=== PATIENT | male | born 1945 | race Caucasian/White ===

== ENCOUNTER 2017-02-22 17:03 | Inpatient (IN) | payer MEDICARE ==
[~2017-02-22] VITALS: Ht 198.1 cm; Wt 92.1 kg
--- NOTE | 2017-02-22 17:34 | ER Report ---
History and Physical Time Seen By MD: 17:33 HPI/ROS CHIEF COMPLAINT: Abdominal pain, dysuria HISTORY OF PRESENT ILLNESS: 72-year-old male patient presents to emergency room with complaint of abdominal pain, dysuria. Patient states that this been going on for approximately 3 weeks. He states that he has not taken any medications for this. He has not seen a primary care provider in approximately 10 years. He states that he's not had any nausea or vomiting, however he has had diarrhea. He states the diarrhea is been fairly significant. He feels like she is unable to get enough fluid. He did go and see Amira Markham today who referred him to the emergency room for further evaluation and possible admission. He did have lab work done, white count of 12.7, left shift, moderate leukocyte esterase with 2000 white cells per high-power field on his urinalysis. REVIEW OF SYSTEMS: Respiratory: No cough, no dyspnea. Cardiovascular: No chest pain, no palpitations. Gastrointestinal: As noted above Musculoskeletal: No back pain. Allergies: Coded Allergies: No Known Drug Allergies (Unverified , 02/22/17) Home Meds No Active Prescriptions or Reported Meds Past Medical/Surgical History Patient has a past medical history of Type 2 diabetes Reviewed Nurses Notes: Yes Constitutional Vital Sign - Last 24 Hours 02/22/17 02/22/17 02/22/17 02/22/17 17:33 17:49 17:50 18:00 Temp 100.2 Pulse ??? 92 Resp 18 B/P (MAP) 159/88 (111) 159/88 155/89 (111) Pulse Ox 92 O2 Delivery Room Air 02/22/17 02/22/17 02/22/17 02/22/17 18:03 18:33 18:38 19:04 Pulse 97 93 92 Resp 25 15 B/P (MAP) 155/81 (105) 149/85 (106) Pulse Ox 92 92 92 02/22/17 02/22/17 02/22/17 19:08 19:32 19:38 Pulse 86 86 Resp 9 11 B/P (MAP) 163/79 (107) Pulse Ox 91 92 Intake and Output 02/22/17 02/22/17 02/23/17 15:00 23:00 07:00 Intake Total 1000 ml Balance 1000 ml Physical Exam General Appearance: The patient is alert, has no immediate need for airway protection and no current signs of toxicity. Respiratory: Chest is non tender, lungs are clear to auscultation. Cardiac: regular rate and rhythm Gastrointestinal: Abdomen is soft and non tender, no masses, bowel sounds normal. Musculoskeletal: Neck: Neck is supple and non tender. Extremities have full range of motion and are non tender. Skin: No rashes or lesions. DIFFERENTIAL DIAGNOSIS: After history and physical exam differential diagnosis was considered for UTI, urosepsis, weakness, kidney stones. Medical Decision Making Data Points Result Diagram: 02/22/17180702/22/171807 Laboratory Hematology Test 02/22/17 17:56 02/22/17 18:08 02/22/17 18:25 02/22/17 18:41 Urine Color Yellow Urine Clarity Turbid Urine pH 5.0 pH (4.8-9.5) Urine Specific [place] 1.016 Urine Protein 100 mg/dL (NEGATIVE) Urine Glucose (UA) 500 mg/dL (NEGATIVE) Urine Ketones Trace mg/dL (NEGATIVE) Urine Blood Moderate (NEGATIVE) Urine Nitrite Negative (NEGATIVE) Urine Bilirubin Negative (NEGATIVE) Urine Urobilinogen Negative mg/dL (0.2-1.9) Urine Leukocyte Esterase Moderate (NEGATIVE) Urine RBC None /HPF (0-2/HPF) Urine WBC 1738 /HPF (0-5/HPF) Urine WBC Clumps Many /HPF Urine Squamous Epithelial Cells None /LPF (</=FEW) Urine Transitional Epithelial Cells Many /LPF (NONE-FEW) Urine Bacteria Negative /HPF (NONE-FEW) Urine Mucus None /HPF (NONE-FEW) Urine Yeast (Budding) Many /HPF Red Blood Count 5.05 M/uL (4.00-5.60) Mean Corpuscular Volume 89.4 fL (80.0-96.0) Mean Corpuscular Hemoglobin 29.7 pg (26.0-33.0) Mean Corpuscular Hemoglobin Concent 33.2 g/dL (32.0-36.0) Red Cell Distribution Width 13.1 % (11.5-14.5) Mean Platelet Volume 7.9 fL (7.2-11.1) Neutrophils (%) (Auto) 88.0 % (39.4-72.5) Lymphocytes (%) (Auto) 5.0 % (17.6-49.6) Monocytes (%) (Auto) 6.3 % (4.1-12.4) Eosinophils (%) (Auto) 0.1 % (0.4-6.7) Basophils (%) (Auto) 0.6 % (0.3-1.4) Nucleated RBC Relative Count (auto) 0.0 /100WBC Neutrophils # (Auto) 9.9 K/uL (2.0-7.4) Lymphocytes # (Auto) 0.6 K/uL (1.3-3.6) Monocytes # (Auto) 0.7 K/uL (0.3-1.0) Eosinophils # (Auto) 0.0 K/uL (0.0-0.5) Basophils # (Auto) 0.1 K/uL (0.0-0.1) Nucleated RBC Absolute Count (auto) 0.00 K/uL Peripheral Blood Smear No Y/N Sodium Level 128 mmol/L (137-145) Potassium Level 4.9 mmol/L (3.5-5.0) Chloride Level 96 mmol/L (98-107) Carbon Dioxide Level 19 mmol/L (22-30) Blood Urea Nitrogen 37 mg/dl (9-21) Creatinine 1.70 mg/dl (0.66-1.25) Glomerular Filtration Rate Calc 39.7 Random Glucose 454 mg/dl (75-110) Osmolality 305 mOSM/K (275-295) Lactate 1.8 mmol/L (0.7-2.1) Calcium Level 9.9 mg/dl (8.4-10.2) Total Bilirubin 0.7 mg/dl (0.2-1.3) Aspartate Amino Transf (AST/SGOT) 35 U/L (0-35) Alanine Aminotransferase (ALT/SGPT) 69 U/L (0-56) Alkaline Phosphatase 248 U/L (0-126) Total Protein 7.9 gm/dl (6.3-8.2) Albumin 3.7 g/dl (3.5-5.0) Acetone, Qualitative Negative Blood Gas Puncture Site Right radial Blood Gas Patient Temperature 100.2 DEGREES Arterial Blood pH 7.43 (7.35-7.45) Arterial Blood Partial Pressure CO2 < 25 mmHg (32-37) Arterial Blood Partial Pressure O2 62 mmHg (60-80) Arterial Blood HCO3 16 mmol/L (20-26) Arterial Blood Oxygen Saturation 92 % (92-100) Arterial Blood Base Excess -9.0 mmol/L Tru Test Acceptable Oxygen Liters/Minute 0 Whole Blood Glucose 424 mg/DL (75-110) Chemistry Test 02/22/17 17:56 02/22/17 18:08 02/22/17 18:25 02/22/17 18:41 Urine Color Yellow Urine Clarity Turbid Urine pH 5.0 pH (4.8-9.5) Urine Specific [place] 1.016 Urine Protein 100 mg/dL (NEGATIVE) Urine Glucose (UA) 500 mg/dL (NEGATIVE) Urine Ketones Trace mg/dL (NEGATIVE) Urine Blood Moderate (NEGATIVE) Urine Nitrite Negative (NEGATIVE) Urine Bilirubin Negative (NEGATIVE) Urine Urobilinogen Negative mg/dL (0.2-1.9) Urine Leukocyte Esterase Moderate (NEGATIVE) Urine RBC None /HPF (0-2/HPF) Urine WBC 1738 /HPF (0-5/HPF) Urine WBC Clumps Many /HPF Urine Squamous Epithelial Cells None /LPF (</=FEW) Urine Transitional Epithelial Cells Many /LPF (NONE-FEW) Urine Bacteria Negative /HPF (NONE-FEW) Urine Mucus None /HPF (NONE-FEW) Urine Yeast (Budding) Many /HPF White Blood Count 11.3 k/uL (4.5-11.0) Red Blood Count 5.05 M/uL (4.00-5.60) Hemoglobin 15.0 g/dL (14.0-18.0) Hematocrit 45.1 % (42.0-52.0) Mean Corpuscular Volume 89.4 fL (80.0-96.0) Mean Corpuscular Hemoglobin 29.7 pg (26.0-33.0) Mean Corpuscular Hemoglobin Concent 33.2 g/dL (32.0-36.0) Red Cell Distribution Width 13.1 % (11.5-14.5) Platelet Count 380 K/uL (150-450) Mean Platelet Volume 7.9 fL (7.2-11.1) Neutrophils (%) (Auto) 88.0 % (39.4-72.5) Lymphocytes (%) (Auto) 5.0 % (17.6-49.6) Monocytes (%) (Auto) 6.3 % (4.1-12.4) Eosinophils (%) (Auto) 0.1 % (0.4-6.7) Basophils (%) (Auto) 0.6 % (0.3-1.4) Nucleated RBC Relative Count (auto) 0.0 /100WBC Neutrophils # (Auto) 9.9 K/uL (2.0-7.4) Lymphocytes # (Auto) 0.6 K/uL (1.3-3.6) Monocytes # (Auto) 0.7 K/uL (0.3-1.0) Eosinophils # (Auto) 0.0 K/uL (0.0-0.5) Basophils # (Auto) 0.1 K/uL (0.0-0.1) Nucleated RBC Absolute Count (auto) 0.00 K/uL Peripheral Blood Smear No Y/N Glomerular Filtration Rate Calc 39.7 Osmolality 305 mOSM/K (275-295) Lactate 1.8 mmol/L (0.7-2.1) Calcium Level 9.9 mg/dl (8.4-10.2) Total Bilirubin 0.7 mg/dl (0.2-1.3) Aspartate Amino Transf (AST/SGOT) 35 U/L (0-35) Alanine Aminotransferase (ALT/SGPT) 69 U/L (0-56) Alkaline Phosphatase 248 U/L (0-126) Total Protein 7.9 gm/dl (6.3-8.2) Albumin 3.7 g/dl (3.5-5.0) Acetone, Qualitative Negative Blood Gas Puncture Site Right radial Blood Gas Patient Temperature 100.2 DEGREES Arterial Blood pH 7.43 (7.35-7.45) Arterial Blood Partial Pressure CO2 < 25 mmHg (32-37) Arterial Blood Partial Pressure O2 62 mmHg (60-80) Arterial Blood HCO3 16 mmol/L (20-26) Arterial Blood Oxygen Saturation 92 % (92-100) Arterial Blood Base Excess -9.0 mmol/L Tru Test Acceptable Oxygen Liters/Minute 0 Whole Blood Glucose 424 mg/DL (75-110) Toxicology Test 02/22/17 18:08 Acetone, Qualitative Negative Urinalysis Test 02/22/17 17:56 Urine Color Yellow Urine Clarity Turbid Urine pH 5.0 pH (4.8-9.5) Urine Specific [place] 1.016 Urine Protein 100 mg/dL (NEGATIVE) Urine Glucose (UA) 500 mg/dL (NEGATIVE) Urine Ketones Trace mg/dL (NEGATIVE) Urine Blood Moderate (NEGATIVE) Urine Nitrite Negative (NEGATIVE) Urine Bilirubin Negative (NEGATIVE) Urine Urobilinogen Negative mg/dL (0.2-1.9) Urine Leukocyte Esterase Moderate (NEGATIVE) Urine RBC None /HPF (0-2/HPF) Urine WBC 1738 /HPF (0-5/HPF) Urine WBC Clumps Many /HPF Urine Squamous Epithelial Cells None /LPF (</=FEW) Urine Transitional Epithelial Cells Many /LPF (NONE-FEW) Urine Bacteria Negative /HPF (NONE-FEW) Urine Mucus None /HPF (NONE-FEW) Urine Yeast (Budding) Many /HPF EKG/Imaging Imaging EXAMINATION: CT HEAD WITHOUT CONTRAST COMPARISON: None available HISTORY: confusion PROCEDURE: Noncontrast CT from the vertex through the skull base. One of the following dose optimization techniques was utilized in the performance of this exam: Automated exposure control; adjustment of the mA and/or kV according to the patient's size; or use of an iterative reconstruction technique. Specific details can be referenced in the facility's radiology CT exam operational policy. FINDINGS: Brain volume: Age-appropriate volume. Hemorrhage/extra-axial fluid: No intracranial hemorrhage or extra-axial fluid collection. Mass effect/midline shift/edema: None. Ischemia: Bradley-white differentiation is preserved. Ventricles and basal cisterns: Ventricle size is within normal limits. Basal cisterns are open. Posterior fossa: Negative. Vessels: Negative. Calvarium, skull base, and scalp: Negative. Visualized sinuses and orbits: Near-complete opacification of the left maxillary sinus which could be secondary to incompletely visualized left maxillary dental disease. There is mild hyperostosis of the left maxillary sinus wall suggestive of chronic inflammation. Ethmoid air cell and frontal sinus mucosal and inflammation is also present. Orbital contents are unremarkable. IMPRESSION: 1. No intracranial hemorrhage or mass effect. 2. No CT findings of acute ischemia. 3. Paranasal sinus inflammation. Report Dictated By: Chas Dooley MD at 02/22/2017 8:40 PM Report E-Signed By: Chas Dooley MD at 02/22/2017 8:46 PM EXAMINATION: CT abdomen and pelvis with contrast COMPARISON: None. HISTORY: Pelvic pain and diarrhea. PROCEDURE: Multiplanar contrast enhanced CT of the abdomen and pelvis with 75 mL intravenous Isovue 370. One of the following dose optimization techniques was utilized in the performance of this exam: Automated exposure control; adjustment of the mA and/or kV according to the patient's size; or use of an iterative reconstruction technique. Specific details can be referenced in the facility's radiology CT exam operational policy. FINDINGS: Visualized thorax: Coronary calcifications. Cardiac chamber size is normal. No evidence of acute disease in the visualized lung bases. Liver: Negative. Gallbladder and biliary system: There are a few tiny calcified gallstones. No pericholecystic inflammation. No bile duct dilation. Spleen: Spleen size is normal. Pancreas: Negative. Adrenal glands: Negative. Kidneys, bladder, and prostate: Markedly distended urinary bladder with irregular wall thickening and trabeculation. Multiple small calcified bladder stones within the dependent gallbladder as well as a few small regions of calcification along the lower anterior nondependent bladder wall. Moderately enlarged and heterogeneous prostate. Moderately severe bilateral hydroureteronephrosis. There are a few tiny nonobstructing stones in the distal left ureter but no evidence of an obstructing ureteral stone. Multiple bilateral renal cysts; dominant right kidney lower pole cyst measures 5.4 cm and a dominant left kidney lower pole cyst measures 3.9 cm. Vessels: Mild aortoiliac atherosclerosis. No aneurysm. Portal venous system and IVC are unremarkable. Bowel and mesentery: Stomach is within normal limits. No small bowel obstruction or inflammation. Appendix is unremarkable. Small amount stool in the colon. Distal descending colon and sigmoid moderate diverticulosis. The proximal and mid sigmoid extends into a large left inguinal hernia. The hernia sac is not visualized in its entirety although there is no evidence of inflammation along the visualized herniated fat or bowel. No mesenteric abnormality. Lymph nodes: No adenopathy. Free air/free fluid: None. Abdominal wall and osseous structures: Colon containing left inguinal direct hernia as discussed above. Tiny fat-containing umbilical hernia. Moderate degenerative change of the lumbosacral junction. No acute osseous abnormality. IMPRESSION: 1. Markedly dilated urinary bladder with irregular wall thickening and trabeculation is most suggestive of a chronic urinary bladder outlet obstruction ; the prostate is heterogeneously enlarged. Urology consultation is recommended. 2. Moderately severe bilateral hydroureteronephrosis. Although there are multiple bladder stones as well as a few nonobstructing stones in the distal left ureter, the hydronephrosis is favored to be secondary to the bladder outlet obstruction with bilateral distal ureteral obstruction is thought to be less likely. As above, urology consultation is recommended. 3. Large left direct inguinal hernia containing sigmoid colon and fat is incompletely visualized. Although there are no CT findings of inflammation within the visualized hernia sac, if there is any clinical concern for an incarcerated hernia surgical consultation is recommended. 4. Additional chronic findings as detailed above. Results were discussed with Dr. Baxter at 02/22/2017 9:03 PM. Report Dictated By: Chas Dooley MD at 02/22/2017 8:46 PM Report E-Signed By: Chas Dooley MD at 02/22/2017 9:07 PM ED Course/Re-evaluation ED Course Patient was admitted to exam room, history and physical were obtained. Difficult diagnoses were considered. On examination patient has some tenderness to the lower abdomen. An IV was started, CBC, CMP, urinalysis were obtained. Patient had 1700 white cells per high-power field on his urine. Patient had a slightly elevated white count 11,700 with left shift. Creatinine was 1.7 and BUN was 39. CT of abdomen and pelvis was done. Patient had significant distention of the bladder. A catheter was placed which drained 3 L. Patient states he still having significant amounts of pain. He will be given a dose of morphine, 2 mg. I discussed the case with Dr. Stockton, hospitalist who agreed to accept the patient for admission for urinary tract infection, dehydration and urinary obstruction. I discussed patient and her family and they verbalized understanding and agreement. Decision to Disposition Date: Feb 22, 2017 Decision to Disposition Time: 21:44 Depart Departure Latest Vital Signs Vital Signs Date Time Temp Pulse Resp B/P (MAP) Pulse Ox O2 Delivery O2 Flow Rate FiO2 02/22/17 19:38 86 11 92 02/22/17 19:32 163/79 (107) 02/22/17 17:50 100.2 Room Air Impression: Primary Impression: UTI (urinary tract infection) Additional Impressions: Dehydration Urinary retention Condition: Condition Unchanged Disposition: Admitted from ER New Scripts No Active Prescriptions or Reported Meds Problem Qualifiers Primary Impression: UTI (urinary tract infection) Urinary tract infection type: acute cystitis Hematuria presence: with hematuria Qualified Codes: N30.01 - Acute cystitis with hematuria TERRELL OSORIO Feb 22, 2017 17:34
[2017-02-22] MEDS ORDERED: NS(*) 0.9% 1000 ML BAG 1,000 ML IV ONE (17:53)
[2017-02-22 18:28] LABS: PLATELET COUNT, AUTOMATED 380 K/uL (150-450)
[2017-02-22] MEDS ORDERED: INSU HUM REG 100 U/ML(ER ONLY) 10 ML VIAL IV ONE (18:45)
[2017-02-22] MEDS ORDERED: IOPAMIDOL 76% 75 ML INFUS BTL 75 ML ONE (19:37)
[2017-02-22] MEDS ORDERED: NS 0.9% 50 ML VIAL 50 ML ONE (19:37)
--- NOTE | 2017-02-22 20:50 | RADIOLOGY IMAGING REPORT ---
FACILITY: [facility] [place] PATIENT NAME: gIgy Ibarra : 1945 MR: [id number] V: [id number] EXAM DATE: ORDERING PHYSICIAN: TERRELL OSORIO TECHNOLOGIST: Location: [facility] [place] Patient: Iggy Ibarra : 1945 Visit/Account:[id number] Date of Sevice: 02/22/2017 EXAMINATION: CT HEAD WITHOUT CONTRAST COMPARISON: None available HISTORY: confusion PROCEDURE: Noncontrast CT from the vertex through the skull base. One of the following dose optimizat ion techniques was utilized in the performance of this exam: Automated exposure control; adjustment o f the mA and/or kV according to the patient's size; or use of an iterative reconstruction technique. Specific details can be referenced in the facility's radiology CT exam operational policy. FINDINGS: Brain volume: Age-appropriate volume. Hemorrhage/extra-axial fluid: No intracranial hemorrhage or extra-axial fluid collection. Mass effect/midline shift/edema: None. Ischemia: Bradley-white differentiation is preserved. Ventricles and basal cisterns: Ventricle size is within normal limits. Basal cisterns are open. Posterior fossa: Negative. Vessels: Negative. Calvarium, skull base, and scalp: Negative. Visualized sinuses and orbits: Near-complete opacification of the left maxillary sinus which could be secondary to incompletely visualized left maxillary dental disease. There is mild hyperostosis of th e left maxillary sinus wall suggestive of chronic inflammation. Ethmoid air cell and frontal sinus mu cosal and inflammation is also present. Orbital contents are unremarkable. IMPRESSION: 1. No intracranial hemorrhage or mass effect. 2. No CT findings of acute ischemia. 3. Paranasal sinus inflammation. Report Dictated By: Chas Dooley MD at 02/22/2017 8:40 PM Report E-Signed By: Chas Dooley MD at 02/22/2017 8:46 PM WSN:[id number]
[2017-02-22] MEDS ORDERED: cefTRIAXone 1 GM VIAL IVP ONE (21:10)
--- NOTE | 2017-02-22 21:10 | RADIOLOGY IMAGING REPORT ---
[facility] PATIENT NAME: Iggy Ibarra : 1945 MR: [id number] V: [id number] EXAM DATE: ORDERING PHYSICIAN: TERRELL OSORIO TECHNOLOGIST: Location: [facility] Patient: Iggy Ibarra : 1945 Visit/Account:[id number] Date of Sevice: 02/22/2017 EXAMINATION: CT abdomen and pelvis with contrast COMPARISON: None. HISTORY: Pelvic pain and diarrhea. PROCEDURE: Multiplanar contrast enhanced CT of the abdomen and pelvis with 75 mL intravenous Isovue 3 70. One of the following dose optimization techniques was utilized in the performance of this exam: A utomated exposure control; adjustment of the mA and/or kV according to the patient's size; or use of an iterative reconstruction technique. Specific details can be referenced in the facility's radiolo gy CT exam operational policy. FINDINGS: Visualized thorax: Coronary calcifications. Cardiac chamber size is normal. No evidence of acute dise ase in the visualized lung bases. Liver: Negative. Gallbladder and biliary system: There are a few tiny calcified gallstones. No pericholecystic inflamm ation. No bile duct dilation. Spleen: Spleen size is normal. Pancreas: Negative. Adrenal glands: Negative. Kidneys, bladder, and prostate: Markedly distended urinary bladder with irregular wall thickening and trabeculation. Multiple small calcified bladder stones within the dependent gallbladder as well as a few small regions of calcification along the lower anterior nondependent bladder wall. Moderately en larged and heterogeneous prostate. Moderately severe bilateral hydroureteronephrosis. There are a few tiny nonobstructing stones in the distal left ureter but no evidence of an obstructing ureteral ston e. Multiple bilateral renal cysts; dominant right kidney lower pole cyst measures 5.4 cm and a domina nt left kidney lower pole cyst measures 3.9 cm. Vessels: Mild aortoiliac atherosclerosis. No aneurysm. Portal venous system and IVC are unremarkable. Bowel and mesentery: Stomach is within normal limits. No small bowel obstruction or inflammation. Kirit endix is unremarkable. Small amount stool in the colon. Distal descending colon and sigmoid moderate diverticulosis. The proximal and mid sigmoid extends into a large left inguinal hernia. The hernia sa c is not visualized in its entirety although there is no evidence of inflammation along the visualize d herniated fat or bowel. No mesenteric abnormality. Lymph nodes: No adenopathy. Free air/free fluid: None. Abdominal wall and osseous structures: Colon containing left inguinal direct hernia as discussed abov e. Tiny fat-containing umbilical hernia. Moderate degenerative change of the lumbosacral junction. No acute osseous abnormality. IMPRESSION: 1. Markedly dilated urinary bladder with irregular wall thickening and trabeculation is most suggesti ve of a chronic urinary bladder outlet obstruction; the prostate is heterogeneously enlarged. Urology consultation is recommended. 2. Moderately severe bilateral hydroureteronephrosis. Although there are multiple bladder stones as w ell as a few nonobstructing stones in the distal left ureter, the hydronephrosis is favored to be sec ondary to the bladder outlet obstruction with bilateral distal ureteral obstruction is thought to be less likely. As above, urology consultation is recommended. 3. Large left direct inguinal hernia containing sigmoid colon and fat is incompletely visualized. Alt tere there are no CT findings of inflammation within the visualized hernia sac, if there is any clin ical concern for an incarcerated hernia surgical consultation is recommended. 4. Additional chronic findings as detailed above. Results were discussed with Dr. Baxter at 02/22/2017 9:03 PM. Report Dictated By: Chas Dooley MD at 02/22/2017 8:46 PM Report E-Signed By: Chas Dooley MD at 02/22/2017 9:07 PM WSN:[id number]
[2017-02-22] MEDS ORDERED: MORPHINE 2 MG/ML SYR IVP ONE (21:25)
[2017-02-22 21:57] VITALS: BP 159/90
[2017-02-22] MEDS ORDERED: NS(*) 0.9% 1000 ML BAG 1,000 ML IV PRN ×2 (22:45)
[2017-02-22] MEDS ORDERED: ACETAMINOPHEN 325 MG TAB PO PRN (22:55)
[2017-02-22] MEDS ORDERED: ONDANSETRON 4 MG/2 ML VIAL IVP PRN (22:55)
[2017-02-22] MEDS ORDERED: FLUCONAZOLE 200 MG/100ML PRMIX 100 ML IVPB SCH ×2 (22:55→23:30)
[2017-02-22] MEDS ORDERED: MORPHINE 4 MG/ML SYR ONE (23:00)
[2017-02-22] MEDS: MORPHINE 2 MG/ML SYR IVP PRN (23:02)
[2017-02-22] MEDS ORDERED: MORPHINE 4 MG/ML SYR IVP PRN (23:05)
[2017-02-22] MEDS ORDERED: FLUCONAZOLE 100 MG TAB ONE (23:18)
[2017-02-22] MEDS ORDERED: FLUCONAZOLE 200 MG/100ML PRMIX 100 ML IVPB ONE (23:30)
--- NOTE | 2017-02-23 00:04 | History & Physical ---
History of Present Illness Chief Complaint fever, abdominal pain, dysuria History of Present Illness Mr. Ibarra is a 72-year-old male with PMH of BPH and Kidney stones who presents to emergency room with complaint of abdominal pain, dysuria. Patient states that this has been going on for approximately 3 weeks. He states that he has not taken any medications for this. He has not seen a primary care provider in approximately 10 years. He states that he's not had any nausea or vomiting, however he has had diarrhea. He states the diarrhea is been fairly significant. He feels very dehydrated. He did go and see Amira Guzman today who referred him to the emergency room for further evaluation and possible admission. He did have lab work done, white count of 12.7, left shift, moderate leukocyte esterase with 2000 white cells per high-power field on his urinalysis. His CT scan of the A/P revealed bilateral moderated hydronephrosis, Bladder stones, L-inguinal hernia. Swift catheter was inserted in the ER and bloody urine output noted. I discussed the case with the ER-MD and admitted the patient for further evaluation and management. History Home Meds No Active Prescriptions or Reported Meds Allergies: Coded Allergies: No Known Drug Allergies (Unverified , 02/22/17) Patient History: FH: [place] (myocardial infarction) MOTHER, , Age:Unknown FH: pneumonia FATHER, Smoking Status: Never Smoker Hx Alcohol Use: Yes Alcohol Used: Beer Hx Substance Use Disorder: No Review of Systems Constitutional: Fever, No Weight Loss, No Weight Gain, No Chills Neurological: Confusion, Weakness, No Syncope, No Dizziness Eyes: No Vision Change ENT: No Sinus Congestion, No Sore Throat Cardiovascular: No Chest Pain, No Palpitations Respiratory: No Shortness of Breath, No Cough, No Wheezing Gastrointestinal: Nausea, No Vomiting, Diarrhea, No Dysphagia, No Constipation , No Early Satiety, No Hematemesis, No Hematochezia, No Melena, No Abdominal Pain Genitourinary: Dysuria, Hematuria (Swift in place with gross hematuria) Musculoskeletal: Pain, Impaired Mobility, No Sprain, No Strain Psychiatric: No Depression, No Anxiety Exam Vital Signs Vital Signs Date Time Temp Pulse Resp B/P (MAP) Pulse Ox O2 Delivery O2 Flow Rate FiO2 02/22/17 19:43 88 15 91 02/22/17 19:32 163/79 (107) 02/22/17 17:50 100.2 Room Air General Appearance: Alert, Awake, Other (moderate pain in his lower abdomen and urethera) Neuro: No Gross deficits Eyes: PERRLA ENT: Other (severely dry oral mucosa) Cardiovascular: Normal Rhythm & Peripheral Pulses Respiratory: No Respiratory Distress GI: Abd Soft and Non-Tender : Other (CVA tenderness) Musculoskeletal: Other (generalized weakness) Extremities: Soft and Non Tender Integumentary: Skin Intact without Lesion / Mass Psych: Other (in moderate distress) Medical Decision Making Data Points Result Diagram: 02/22/17180702/22/171807 EKG / Imaging Imaging reviewed Pre-Admit Course ED Medications reviewed Medical Record Review: Yes Assessment and Plan Problems: (1) UTI (urinary tract infection) Status: Acute Assessment & Plan: Patient has UTI/Pyelonephritis due to obstructive Uropathy. He received Rocephin 2gm IVPB in the ER. I will continue Rocephin 1gm IV q daily. I will get UCX/S and BCX/S. I will repeat his labs in am (2) Obstructive uropathy Status: Acute Assessment & Plan: His Obstructive Uropathy was most likely due to enlarge prostate. Swift catheter was placed and patient was started o Rocephin 2gm IV . I will get Urology consult in am and also get surgical consult for his L-Inguinal Hernia. For pain I will use Morphine 2-4mg iv q4h prn (3) Acute kidney injury Status: Acute Assessment & Plan: His SENG is due to Obstructive Uropathy and I will start him on IVF NS at 200ml/h for 5 hours and then 150ml/h. I will recheck his kidney function in am. (4) Dehydration Status: Acute Assessment & Plan: He has been having diarrhea and he became very dehydrated. I will start NS at 200ml/h for 5 hours and then 150ml/h. I will get his am labs. Central Venous Access Medical Necessity for Access: IV Access, Medication Administration Condition Guarded Time Spent on Plan of Care: > 30 min Copies to: AMIRA GUZMAN DNP, [employer] DIVE TRAINING INSTRUCTOR-BC Venous Thromboembolism VTE Risk Physician Assess for VTE Risk: Yes Patient's VTE Risk: Low VTE Diagnostic Test 2 Days Prior to Admit: No Antithrombotics Is Pt On Any Antithrombotics?: No Exam Sepsis Risk: No Definite Risk Problem Qualifiers (1) UTI (urinary tract infection): Urinary tract infection type: acute cystitis Hematuria presence: with hematuria Qualified Codes: N30.01 - Acute cystitis with hematuria JOS LOVE MD Feb 23, 2017 00:04
[2017-02-23] MEDS: MORPHINE 4 MG/ML SYR IVP PRN ×4 (02:58→20:18)
[2017-02-23 02:59] VITALS: BP 122/68
[2017-02-23] MEDS: NS(*) 0.9% 1000 ML BAG 1,000 ML IV PRN ×4 (04:36→23:06)
[2017-02-23 05:44] LABS: PLATELET COUNT, AUTOMATED 291 K/uL (150-450)
[2017-02-23 07:44] VITALS: BP 139/80
[2017-02-23] MEDS: INSULIN HUM LISPRO 100 UN/ML 3 ML VIAL SUBQ PRN ×4 (08:17→21:09)
--- NOTE | 2017-02-23 09:53 | RADIOLOGY IMAGING REPORT ---
FACILITY: [facility] - [place] PATIENT NAME: Iggy Ibarra : 1945 MR: [id number] V: [id number] EXAM DATE: ORDERING PHYSICIAN: JOS LOVE TECHNOLOGIST: Location: [facility] - [place] Patient: Iggy Ibarra : 1945 Visit/Account:[id number] Date of Sevice: 02/23/2017 KIDNEYS EXAMINATION: Renal ultrasound. History: Hydronephrosis, urinary retention, UTI COMPARISON STUDIES: CT abdomen pelvis February 22, 2017 FINDINGS: Kidneys: Right kidney- 13.2 x 8.1 x 6.9 cm. Is a moderate to severe right hydronephrosis. Resistive index on the right 0.68. There are multiple round cortical hypoattenuating lesions the right kidney likely r epresent cysts as seen on the recent CT. The largest measures 6 cm in diameter in the lower pole Left kidney- 12.8 x 7 x 5.6 cm there is a severe left hydronephrosis. There are multiple cysts in th e left kidney. The largest measures 4.7 cm in diameter. Resistive index on the left 0.74 Uniform and symmetric blood flow in each kidney by Doppler ultrasound. Bladder: Urinary bladder is decompressed by Swift catheter. The bladder wall appears extremely thick ened and irregular. There appear to be an echogenic filling defect along the inferior aspect of the bladder not ideally characterized due to decompression of the bladder. This could represent the enla rged prostate gland as seen on yesterday's CT scan possibly blood clots. Abdominal aorta and IVC: Not well seen due to overlying bowel gas IMPRESSION: Moderate to severe right hydronephrosis and severe left hydronephrosis Bilateral renal cysts The bladder is decompressed with a Swift catheter therefore not ideally evaluated. There is irregula r thickening of the bladder wall. Echogenic material is seen along the inferior aspect of the bladde r which could represent the enlarged prostate gland or possibly blood clots. Yesterday's CT did not demonstrate a definite bladder mass although did demonstrate calcifications. Report Dictated By: Gala Quinones MD at 02/23/2017 9:33 AM Report E-Signed By: Gala Quinones MD at 02/23/2017 9:50 AM WSN:RADHA
[2017-02-23 10:56] VITALS: BP 131/82
[2017-02-23 14:44] VITALS: BP 133/80
[2017-02-23 15:39] VITALS: Ht 198.1 cm; Wt 92.1 kg
--- NOTE | 2017-02-23 15:46 | Hospitalist Progress Note ---
Subjective Progress Notes Subjective He reports much less abdominal discomfort and his urine has cleared. Physical Exam Vital Signs Date Time Temp Pulse Resp B/P (MAP) Pulse Ox O2 Delivery O2 Flow Rate FiO2 02/23/17 14:44 97.9 72 16 133/80 (97) 93 Room Air 02/23/17 08:15 1.0 Intake and Output 02/24/17 07:00 Intake Total 1370 ml Output Total 1850 ml Balance -480 ml Intake Oral 240 ml IV Total 1130 ml Output Urine Total 1850 ml General Appearance: Alert, Awake, No Acute Distress GI: Other (Soft, non-distended. Mild discomfort with palpation over suprapubic area.) Result Diagram: 02/23/1752402/23/17524 Assessment and Plan Problems: (1) UTI (urinary tract infection) Status: Acute Assessment & Plan: Patient has UTI/Pyelonephritis due to obstructive Uropathy. He received Rocephin 2gm IVPB in the ER. I will continue Rocephin 1gm IV q daily. I will get UCX/S and BCX/S. I will repeat his labs in am 02/23: Hematuria has resolved. Cr improving. Afebrile. WBC still elevated. Continue Rocephin. (2) Obstructive uropathy Status: Acute Assessment & Plan: His Obstructive Uropathy was most likely due to enlarge prostate. Swift catheter was placed and patient was started o Rocephin 2gm IV . I will get Urology consult in am and also get surgical consult for his L-Inguinal Hernia. For pain I will use Morphine 2-4mg iv q4h prn 02/23: Cr improving. Continue IVF. Dr. Denise to see the patient. Continue Swift catheter. (3) Acute kidney injury Status: Acute Assessment & Plan: His SENG is due to Obstructive Uropathy and I will start him on IVF NS at 200ml/h for 5 hours and then 150ml/h. I will recheck his kidney function in am. 02/23: Improving. See above. (4) Dehydration Status: Acute Assessment & Plan: He has been having diarrhea and he became very dehydrated. I will start NS at 200ml/h for 5 hours and then 150ml/h. I will get his am labs. 02/23: Improving with IVF. Following Cr. See above. Central Venous Access Medical Necessity for Access: IV Access, Medication Administration Exam Sepsis Risk: No Definite Risk Problem Qualifiers (1) UTI (urinary tract infection): Urinary tract infection type: acute cystitis Hematuria presence: with hematuria Qualified Codes: N30.01 - Acute cystitis with hematuria JOY CONTRERAS MD Feb 23, 2017 15:46
[2017-02-23 19:03] VITALS: BP 154/97
[2017-02-23] MEDS: cefTRIAXone 1 GM VIAL IVP SCH (21:08)
[2017-02-23] MEDS: FLUCONAZOLE 200 MG/100ML PRMIX 50 ML IVPB SCH (23:06)
[2017-02-24] MEDS: MORPHINE 2 MG/ML SYR IVP PRN (01:45)
[2017-02-24 03:18] VITALS: BP 159/84
[2017-02-24] MEDS: MORPHINE 4 MG/ML SYR IVP PRN ×3 (06:19→18:46)
[2017-02-24 06:55] LABS: PLATELET COUNT, AUTOMATED 269 K/uL (150-450)
[2017-02-24 07:22] VITALS: BP 147/81
[2017-02-24] MEDS: NS(*) 0.9% 1000 ML BAG 1,000 ML IV PRN ×2 (07:24→18:46)
[2017-02-24] MEDS: INSULIN HUM LISPRO 100 UN/ML 3 ML VIAL SUBQ PRN ×3 (08:39→21:10)
[2017-02-24] MEDS: glipiZIDE XL 5 MG TABCR PO SCH (10:52)
[2017-02-24 11:46] VITALS: BP 131/80
--- NOTE | 2017-02-24 14:09 | Medical Nutrition Therapy ---
Nutrition Anthropometrics Height (Inches): 78.00 Height (Calculated Centimeters: 198.389881 Weight (Pounds): 203 Weight (Calculated Kilograms): 92.079 BMI Calculated: 23.46 Mac Nutrition Score: Adequate Mac Nutrition Risk Score: 17 Dietary Referral Nutrition Risk Factors: Nutrition Risk Comment: Physical Findings Physical Appearance: WNL Skin Appearance Skin Appearance: Edema Edema Location Modifier: Edema Location: Type of Edema: Degree of Edema: Gastrointestinal Symptoms GI Symtoms: Tube Present: Bowel Sounds: Recent Bowel Pattern: Diarrhea Stool Characteristics: Nutritional Diagnosis Nutritional Risk Acuity 2: Blood Glucose > 300mg/dl Nutritional Risk Acuity 3: Fair Appetite Past Medical History: T2DM Nutritional Acuity: 2-Moderate Diet Type: Diabetic Nutrition Intervention: Cont diet as ordered, Encourage intake Nutrition Monitoring & Eval Nutrition Goals: Eat 75-100% Meal RD Patient Assessment Time: [address] Assessment Type: RD Assessment Patient Nutrition Acuity: 2-Moderate Follow Up Date: Feb 25, 2017 Nutritional Comment: Pt admitted with UTI and SENG due to Obstructive Uropathy. Pt reports 3 wk hx of abdominal pain and diarrhea. Pt on CHO controlled diet. Admitting BG of 454 has improved to 301. BUN 30, Creatinine 1.3, Alb 2.3. Pt is eating 25- 100% of meals. Will cont to monitor and encourage intake. XIOMARA LLAMAS Feb 24, 2017 14:09
[2017-02-24 14:55] VITALS: BP 142/86
--- NOTE | 2017-02-24 19:09 | Hospitalist Progress Note ---
Subjective Progress Notes Subjective Mr. Ibarra is a 72-year-old male with PMH of BPH and Kidney stones who presents to emergency room with complaint of abdominal pain, dysuria. Patient states that this has been going on for approximately 3 weeks. He states that he has not taken any medications for this. He has not seen a primary care provider in approximately 10 years. He states that he's not had any nausea or vomiting, however he has had diarrhea. He states the diarrhea is been fairly significant. He feels very dehydrated. He did go and see Amira Guzman today who referred him to the emergency room for further evaluation and possible admission. He did have lab work done, white count of 12.7, left shift, moderate leukocyte esterase with 2000 white cells per high-power field on his urinalysis. His CT scan of the A/P revealed bilateral moderated hydronephrosis, Bladder stones, L-inguinal hernia. Swift catheter was inserted in the ER and bloody urine output noted. I discussed the case with the ER-MD and admitted the patient for further evaluation and management. 02/24: During the course of hospitalization, he received Swift and was decompressed. He is currently on Rocephin for UTI. His kidney function has improved to BUN/Cr 20/1.0. He is purring good UOP. His BS has been on the high side and renal US and CT scan revealed enlarged prostate and bilateral hydronephrosis. Pt. was seen by Urologist yesterday. Patient Complains of: Neurological: Weakness, No: Syncope, Confusion, Dizziness Cardiovascular: No: Chest Pain, Palpitations Respiratory: No: Cough, Congestion, Shortness of Breath Gastrointestinal: No Nausea, No Vomiting, No Flatus Genitourinary: Dysuria, No Hematuria Musculoskeletal: No: Pain, Sprain, Strain Physical Exam Vital Signs Date Time Temp Pulse Resp B/P (MAP) Pulse Ox O2 Delivery O2 Flow Rate FiO2 02/24/17 14:55 98.0 73 16 142/86 (104) 94 Room Air 02/24/17 07:22 0.5 Intake and Output 02/25/17 07:00 Intake Total 1196 ml Output Total 2350 ml Balance -1154 ml Intake Oral 440 ml IV Total 756 ml Output Urine Total 2350 ml # Voids 1 General Appearance: Alert, Awake, No Acute Distress, Afebrile Neuro: No Gross deficits Eyes: PERRLA ENT: Normal Cardiovascular: Normal Rhythm & Peripheral Pulses Respiratory: No Respiratory Distress GI: Soft and Non-Tender : Normal, No CVA Tenderness, Other (mild pelvic area tenderness) Extremities: Soft and Non Tender Psych: Alert & Oriented X3, Appropriate Mood & Affect Result Diagram: 02/24/1762602/24/17626 Assessment and Plan Problems: (1) UTI (urinary tract infection) Status: Acute Assessment & Plan: Patient has UTI/Pyelonephritis due to obstructive Uropathy. He received Rocephin 2gm IVPB in the ER. I will continue Rocephin 1gm IV q daily. I will get UCX/S and BCX/S. I will repeat his labs in am 02/23: Hematuria has resolved. Cr improving. Afebrile. WBC still elevated. Continue Rocephin. 02/24: I will continue his Rocephin and check ID and sensitivity of the Urine CX. I will decrease his IVF to NS @ 80ml/h (2) Obstructive uropathy Status: Acute Assessment & Plan: His Obstructive Uropathy was most likely due to enlarge prostate. Swift catheter was placed and patient was started o Rocephin 2gm IV . I will get Urology consult in am and also get surgical consult for his L-Inguinal Hernia. For pain I will use Morphine 2-4mg iv q4h prn 02/23: Cr improving. Continue IVF. Dr. Denise to see the patient. Continue Swift catheter. 02/24: I will continue Swift catheter and start Doxazosin 2mg at rios and Flomax 0.4mg po qd for his BPH. I will send PSA level in am (3) Acute kidney injury Status: Acute Assessment & Plan: His SENG is due to Obstructive Uropathy and I will start him on IVF NS at 200ml/h for 5 hours and then 150ml/h. I will recheck his kidney function in am. 02/23: Improving. See above. 02/24: His kidney function has sig. improved with BUN/Cr 201/1.0 and I will check his BMP in am (4) Dehydration Status: Acute Assessment & Plan: He has been having diarrhea and he became very dehydrated. I will start NS at 200ml/h for 5 hours and then 150ml/h. I will get his am labs. 02/23: Improving with IVF. Following Cr. See above. (5) Type II diabetes mellitus Status: Chronic Assessment & Plan: His BS has been on the high side and I will start Glipizide ER 5 mg po qd in am and check his A1C in am Central Venous Access Medical Necessity for Access: IV Access, Medication Administration Condition Guarded Time Spent on Plan of Care: > 30 min Copies to: AMIRA GUZMAN DNP, COATING INSPECTOR-BC Exam Sepsis Risk: No Definite Risk Problem Qualifiers (1) UTI (urinary tract infection): Urinary tract infection type: acute cystitis Hematuria presence: with hematuria Qualified Codes: N30.01 - Acute cystitis with hematuria JOS LOVE MD Feb 24, 2017 19:09
--- NOTE | 2017-02-24 20:14 | Medical Nutrition Therapy ---
Nutrition Anthropometrics Height (Inches): 78.00 Height (Calculated Centimeters: 198.922707 Weight (Pounds): 203 Weight (Calculated Kilograms): 92.079 BMI Calculated: 23.46 Mac Nutrition Score: Adequate Mac Nutrition Risk Score: 17 Dietary Referral Nutrition Risk Factors: Nutrition Risk Comment: Physical Findings Physical Appearance: WNL Skin Appearance Skin Appearance: Edema Edema Location Modifier: Edema Location: Type of Edema: Degree of Edema: Gastrointestinal Symptoms GI Symtoms: Tube Present: Bowel Sounds: Recent Bowel Pattern: Diarrhea Stool Characteristics: Nutrition/Food History No Significant Nutr. HX Good Nutritional Diagnosis Nutritional Risk Acuity 2: Blood Glucose > 300mg/dl Nutritional Risk Acuity 4: Good Appetite Past Medical History: T2DM, BPH, Kidney stones Nutritional Acuity: 2-Moderate Nutrition Problem/Etiology/Sym: Altered Nutrition-Related Laboratory Values r/t diagnosis of T2DM and UTI AEB Glucose levels of 231-424 since admission. Energy Requirement: 2520 ([place]-St Jeor: Actual BW X 1.5) Protein Requirement: 74 (Actual BW Kg X .8) Fluid Requirement: 2520 Diet Type: Diabetic Nutrition Intervention: Cont diet as ordered, Encourage intake Nutrition Monitoring & Eval Nutrition Goals: Eat 75-100% Meal RD Patient Assessment Time: [address] Assessment Type: RD Assessment Patient Nutrition Acuity: 2-Moderate Follow Up Date: Feb 27, 2017 Nutritional Comment: Pt admitted with UTI and SENG due to Obstructive Uropathy. Pt reports 3 wk hx of abdominal pain and diarrhea. Pt on CHO controlled diet. Admitting BG of 454 has improved to 301. BUN 30, Creatinine 1.3, Alb 2.3. Pt is eating 25- 100% of meals. Will cont to monitor and encourage intake. XIOMARA LLAMAS Feb 24, 2017 20:14
[2017-02-24] MEDS: DOXAZOSIN MESYLATE 2 MG TAB PO SCH (21:10)
[2017-02-24] MEDS: cefTRIAXone 1 GM VIAL IVP SCH (21:10)
[2017-02-24 22:34] VITALS: BP 164/85
[2017-02-24] MEDS: FLUCONAZOLE 200 MG/100ML PRMIX 50 ML IVPB SCH (22:37)
[2017-02-25] MEDS: MORPHINE 2 MG/ML SYR IVP PRN ×3 (00:51→15:32)
[2017-02-25] MEDS: MORPHINE 4 MG/ML SYR IVP PRN ×2 (05:57→22:13)
[2017-02-25] MEDS: NS(*) 0.9% 1000 ML BAG 1,000 ML IV PRN ×2 (05:58→22:13)
[2017-02-25 06:40] LABS: PLATELET COUNT, AUTOMATED 250 K/uL (150-450)
[2017-02-25 07:33] VITALS: BP 131/78
[2017-02-25] MEDS: INSULIN HUM LISPRO 100 UN/ML 3 ML VIAL SUBQ PRN ×4 (07:55→20:50)
[2017-02-25] MEDS: glipiZIDE XL 5 MG TABCR PO SCH (09:49)
[2017-02-25 12:04] VITALS: BP 141/89
[2017-02-25] MEDS: TAMSULOSIN HCL 0.4 MG CAP PO SCH (13:15)
[2017-02-25] MEDS: PHENAZOPYRIDINE 200 MG TAB PO SCH ×2 (13:16→20:41)
[2017-02-25 15:33] VITALS: BP 136/75
[2017-02-25] MEDS ORDERED: HYPROMELLOSE 0.4% LUB 15ML BTL OU PRN (19:00)
[2017-02-25 19:20] VITALS: BP 145/82
--- NOTE | 2017-02-25 20:07 | Hospitalist Progress Note ---
Subjective Progress Notes Subjective Mr. Ibarra is a 72-year-old male with PMH of BPH and Kidney stones who presents to emergency room with complaint of abdominal pain, dysuria. Patient states that this has been going on for approximately 3 weeks. He states that he has not taken any medications for this. He has not seen a primary care provider in approximately 10 years. He states that he's not had any nausea or vomiting, however he has had diarrhea. He states the diarrhea is been fairly significant. He feels very dehydrated. He did go and see Amira Guzman today who referred him to the emergency room for further evaluation and possible admission. He did have lab work done, white count of 12.7, left shift, moderate leukocyte esterase with 2000 white cells per high-power field on his urinalysis. His CT scan of the A/P revealed bilateral moderated hydronephrosis, Bladder stones, L-inguinal hernia. Ley catheter was inserted in the ER and bloody urine output noted. I discussed the case with the ER-MD and admitted the patient for further evaluation and management. 02/24: During the course of hospitalization, he received Ley and was decompressed. He is currently on Rocephin for UTI. His kidney function has improved to BUN/Cr 20/1.0. He is purring good UOP. His BS has been on the high side and renal US and CT scan revealed enlarged prostate and bilateral hydronephrosis. Pt. was seen by Urologist yesterday. 02/25: He is feeling much better and having better appetite. He denies any complaint today. I have discussed the case with Urologist. He was up and walking today. Patient Complains of: Neurological: No: Confusion, Weakness, Dizziness Cardiovascular: No: Chest Pain, Palpitations Respiratory: No: Cough, Congestion, Shortness of Breath Gastrointestinal: No Nausea, No Vomiting, No Flatus, No Bowel Movement Genitourinary: No Dysuria, No Hematuria Musculoskeletal: No: Pain, Sprain, Strain Physical Exam Vital Signs Date Time Temp Pulse Resp B/P (MAP) Pulse Ox O2 Delivery O2 Flow Rate FiO2 02/25/17 19:20 97.8 82 20 145/82 (103) 91 Room Air 02/25/17 15:33 93.0 Intake and Output 02/26/17 07:00 Intake Total 340 ml Output Total 3050 ml Balance -2710 ml Intake Oral 340 ml Output Urine Total 3050 ml General Appearance: Alert, Awake, No Acute Distress, Afebrile Neuro: No Gross deficits Eyes: PERRLA ENT: Normal Neck: No Masses Cardiovascular: Normal Rhythm & Peripheral Pulses Respiratory: No Respiratory Distress GI: Soft and Non-Tender : Normal, Other (ley in place) Musculoskeletal: No Weakness/Pain Extremities: Soft and Non Tender Integumentary: Skin Intact without Lesion / Mass Psych: Alert & Oriented X3, Appropriate Mood & Affect Result Diagram: 02/25/1760402/25/17604 Assessment and Plan Problems: (1) UTI (urinary tract infection) Status: Acute Assessment & Plan: Patient has UTI/Pyelonephritis due to obstructive Uropathy. He received Rocephin 2gm IVPB in the ER. I will continue Rocephin 1gm IV q daily. I will get UCX/S and BCX/S. I will repeat his labs in am 02/23: Hematuria has resolved. Cr improving. Afebrile. WBC still elevated. Continue Rocephin. 02/24: I will continue his Rocephin and check ID and sensitivity of the Urine CX. I will decrease his IVF to NS @ 80ml/h 02/25: His UCX did not grow and I will continue his Rocephin. I will start Flomax 0.4mg po qd and try to remove his ley catheter in am and possible d/c in am. (2) Obstructive uropathy Status: Acute Assessment & Plan: His Obstructive Uropathy was most likely due to enlarge prostate. Ley catheter was placed and patient was started o Rocephin 2gm IV . I will get Urology consult in am and also get surgical consult for his L-Inguinal Hernia. For pain I will use Morphine 2-4mg iv q4h prn 02/23: Cr improving. Continue IVF. Dr. Denise to see the patient. Continue Ley catheter. 02/24: I will continue Ley catheter and start Doxazosin 2mg at [facility]os and Flomax 0.4mg po qd for his BPH. I will send PSA level in am 02/25: I will continue his current management and remove ley in am and d/c home if he voids. (3) Acute kidney injury Status: Resolved Assessment & Plan: His SENG is due to Obstructive Uropathy and I will start him on IVF NS at 200ml/h for 5 hours and then 150ml/h. I will recheck his kidney function in am. 02/23: Improving. See above. 02/24: His kidney function has sig. improved with BUN/Cr 201/1.0 and I will check his BMP in am 02/25: His kidney function has improved to normal (4) Dehydration Status: Resolved Assessment & Plan: He has been having diarrhea and he became very dehydrated. I will start NS at 200ml/h for 5 hours and then 150ml/h. I will get his am labs. 02/23: Improving with IVF. Following Cr. See above. (5) Type II diabetes mellitus Status: Chronic Assessment & Plan: His BS has been on the high side and I will start Glipizide ER 5 mg po qd in am and check his A1C in am Central Venous Access Medical Necessity for Access: IV Access, Medication Administration Time Spent on Plan of Care: > 30 min Copies to: AMIRA GUZMAN DNP, AIR TWISTER WINDER-BC Exam Sepsis Risk: No Definite Risk Problem Qualifiers (1) UTI (urinary tract infection): Urinary tract infection type: acute cystitis Hematuria presence: with hematuria Qualified Codes: N30.01 - Acute cystitis with hematuria JOS LOVE MD Feb 25, 2017 20:07
[2017-02-25] MEDS: DOXAZOSIN MESYLATE 2 MG TAB PO SCH (20:41)
[2017-02-25] MEDS: cefTRIAXone 1 GM VIAL IVP SCH (20:41)
[2017-02-25] MEDS: FLUCONAZOLE 200 MG/100ML PRMIX 50 ML IVPB SCH (22:16)
[2017-02-26 02:40] VITALS: BP 147/73
[2017-02-26 06:09] LABS: PLATELET COUNT, AUTOMATED 260 K/uL (150-450)
[2017-02-26 07:05] VITALS: BP 150/93
[2017-02-26] MEDS: INSULIN HUM LISPRO 100 UN/ML 3 ML VIAL SUBQ PRN ×4 (07:53→21:20)
[2017-02-26] MEDS: PHENAZOPYRIDINE 200 MG TAB PO SCH ×3 (09:16→21:20)
[2017-02-26] MEDS: glipiZIDE XL 5 MG TABCR PO SCH (09:17)
[2017-02-26] MEDS: TAMSULOSIN HCL 0.4 MG CAP PO SCH ×2 (09:17→21:20)
[2017-02-26] MEDS ORDERED: BETHANECHOL CHL 25 MG TAB PO SCH (13:00)
--- NOTE | 2017-02-26 14:52 | Hospitalist Progress Note ---
Subjective Progress Notes Subjective This patient was admitted for a urine infection. He had no acute events overnight. Patient Complains of: Cardiovascular: No: Chest Pain Respiratory: No: Shortness of Breath Physical Exam Vital Signs Date Time Temp Pulse Resp B/P (MAP) Pulse Ox O2 Delivery O2 Flow Rate FiO2 02/26/17 08:29 91 02/26/17 08:16 Room Air 02/26/17 07:05 97.9 85 16 150/93 (112) 93.0 Intake and Output 02/27/17 07:00 Intake Total 350 ml Output Total 850 ml Balance -500 ml Intake Oral 350 ml Output Urine Total 850 ml # Voids 1 Cardiovascular: Regular Rate and Rhythm Respiratory: Clear to Auscultation Result Diagram: 02/26/1751702/26/17517 Assessment and Plan Problems: (1) UTI (urinary tract infection) Status: Acute Assessment & Plan: His urine showed moderate leukocytes, but a culture only showed contamination. He has been on treatment with ceftriaxone and fluconazole. (2) Obstructive uropathy Status: Acute Assessment & Plan: Dr. Denise has been following him. He removed that catheter today, but failed to void independently. We will be replacing the catheter. he is on Flomax. (3) Acute kidney injury Status: Resolved Assessment & Plan: His creatinine improved after treating his obstruction. (4) Dehydration Status: Resolved Assessment & Plan: He has been having diarrhea and he became very dehydrated. I will start NS at 200ml/h for 5 hours and then 150ml/h. I will get his am labs. 02/23: Improving with IVF. Following Cr. See above. (5) Type II diabetes mellitus Status: Chronic Assessment & Plan: His BS has been on the high side and I will start Glipizide ER 5 mg po qd in am and check his A1C in am Central Venous Access Medical Necessity for Access: IV Access, Medication Administration Exam Sepsis Risk: No Definite Risk Problem Qualifiers (1) UTI (urinary tract infection): Urinary tract infection type: acute cystitis Hematuria presence: with hematuria Qualified Codes: N30.01 - Acute cystitis with hematuria BEVERLEY PEREZ DO Feb 26, 2017 14:52
[2017-02-26] MEDS: MORPHINE 2 MG/ML SYR IVP PRN (14:58)
[2017-02-26] MEDS ORDERED: BELLADONNA ALK/OPIUM 60MG SUPP PR PRN (17:00)
[2017-02-26 20:06] VITALS: BP 168/93
[2017-02-26] MEDS ORDERED: KETOROLAC 15 MG/ML VIAL IVP SCH (21:00)
[2017-02-26] MEDS ORDERED: BELLADONNA ALK/OPIUM 60MG SUPP PR ONE (21:00)
[2017-02-26] MEDS: DOXAZOSIN MESYLATE 2 MG TAB PO SCH (21:20)
[2017-02-26] MEDS: cefTRIAXone 1 GM VIAL IVP SCH (21:21)
[2017-02-26] MEDS: FLUCONAZOLE 200 MG/100ML PRMIX 50 ML IVPB SCH (23:02)
[2017-02-27 03:22] VITALS: BP 149/84
[2017-02-27 07:13] VITALS: BP 151/85
[2017-02-27] MEDS: INSULIN HUM LISPRO 100 UN/ML 3 ML VIAL SUBQ PRN (07:50)
[2017-02-27] MEDS ORDERED: CIPR-344 PO (07:59)
[2017-02-27] MEDS ORDERED: TAMS0.4C70 PO (08:59)
[2017-02-27] MEDS ORDERED: PHEN200T32 PO (08:59)
[2017-02-27] MEDS ORDERED: GLIP10TA14 PO (08:59)
[2017-02-27] MEDS ORDERED: glipiZIDE XL 5 MG TABCR PO SCH (09:00)
[2017-02-27] MEDS ORDERED: BETHANECHOL CHL 25 MG TAB PO SCH (09:00)
--- NOTE | 2017-02-27 09:03 | Hospitalist Depart ---
Discharge Summary Reason for Hosp/Final Diag: (1) UTI (urinary tract infection) Status: Acute Hospital Course & Plan: His urine showed moderate leukocytes, but a culture only showed contamination. He was on treatment with ceftriaxone and fluconazole. Dr. Corral is discharging him on ciprofloxacin. (2) Obstructive uropathy Status: Acute Hospital Course & Plan: Dr. Corral has been following him. He removed that catheter yesterday, but failed to void independently. The catheter has since been replaced. He remains on Flomax. He will follow up with Dr. Corral on Monday. (3) Acute kidney injury Status: Resolved Hospital Course & Plan: His creatinine improved after treating his obstruction. (4) Dehydration Status: Resolved Hospital Course & Plan: Resolved with IV fluids. (5) Type II diabetes mellitus Status: Chronic Hospital Course & Plan: He has had significant hyperglycemia throughout the admission. He has been started on glipizide. Departure Latest Vital Signs Vital Signs 02/27/17 02/27/17 03:22 07:13 Temp 98.0 Pulse 81 Resp 16 B/P (MAP) 151/85 (107) Pulse Ox 90 O2 Delivery Room Air O2 Flow Rate 95.0 Weight (Pounds): 203 Result Diagram: 02/26/1751702/26/17517 Condition: Improved Discharge: Home, Self Care Discharge Instructions Home Meds Active Scripts Tamsulosin Hcl (TAMSULOSIN HCL) 0.4 Mg Cap.er.24h, 0.4 MG PO BID, #60 CAP Prov:BEVERLEY PEREZ DO 02/27/17 Phenazopyridine Hcl (PHENAZOPYRIDINE HCL) 200 Mg Tablet, 200 MG PO TID, #30 TAB Prov:BEVERLEY PEREZ DO 02/27/17 Glipizide (GLIPIZIDE XL) 10 Mg Tab.er.24, 10 MG PO QAM, #30 TAB Prov:BEVERLEY PEREZ DO 02/27/17 Reported Medications Ciprofloxacin Hcl (CIPRO) 500 Mg Tablet, 500 MG PO BID for 15 Days, #30 02/27/17 Diet: Diabetic Activity: As Tolerated Special Instructions: Call Dr. Corral at [phone] For an ajppointment on March 03. Call Howie or go to the ER with any problems Force fluids 2 liters Copies to: IVANIA CORRAL MD; RAJI GUZMAN DNP, BOX BENDER-BC Venous Thromboembolism Antithrombotics Is Pt On Any Antithrombotics?: No Problem Qualifiers (1) UTI (urinary tract infection): Urinary tract infection type: acute cystitis Hematuria presence: with hematuria Qualified Codes: N30.01 - Acute cystitis with hematuria BEVERLEY PEREZ DO Feb 27, 2017 09:03
[2017-02-27] MEDS: TAMSULOSIN HCL 0.4 MG CAP PO SCH (09:42)
[2017-02-27] MEDS: PHENAZOPYRIDINE 200 MG TAB PO SCH (09:42)
== END 2017-02-27 10:42 | disposition home or self-care (01) | DRG 690 ==
LOC: ER 17:35 → MED 21:34
PROVIDERS: ADMIT Specialist; ATTEND Specialist
DX: N30.01 Acute cystitis with hematuria (principal); N17.9 Acute kidney failure, unspecified; N13.30 Unspecified hydronephrosis; N40.1 Benign prostatic hyperplasia with lower urinary tract symptoms; N13.9 Obstructive and reflux uropathy, unspecified; E86.0 Dehydration; E11.65 Type 2 diabetes mellitus with hyperglycemia; N21.0 Calculus in bladder; K40.90 Unilateral inguinal hernia, without obstruction or gangrene, not specified as recurrent; R33.9 Retention of urine, unspecified
CPT/HCPCS: 36415; 36416; 36600; 70450; 74177; 76705; 81001; 82009; 82040; 82247; 82310; 82374; 82435; 82565; 82803; 82947; 82948; 83605; 83735; 83930; 84075; 84132; 84155; 84295; 84450; 84460; 84520; 85025; 87040; 87088; 96361; 96374; 96375; 99285; J0696; J1450; J1815; J1885; J2270; J7030; J7050; Q9967

== ENCOUNTER 2017-03-06 00:44 | Observation (INO) | payer MEDICARE ==
--- NOTE | 2017-03-03 16:17 | EKG ---
FACILITY: [facility] PATIENT NAME: BEVERLEY DELEON : [id number] MR: [id number] V: [id number] EXAM DATE: ORDERING PHYSICIAN: IVANIA CORRAL TECHNOLOGIST: KATIE Magdaleno Reason : PREOP Blood Pressure : / mmHG Vent. Rate : 080 BPM Atrial Rate : 080 BPM P-R Int : 170 ms QRS Dur : 092 ms QT Int : 364 ms P-R-T Axes : 079 081 069 degrees QTc Int : 419 ms Normal sinus rhythm Normal ECG No previous ECGs available Confirmed by BEVERLEY PEREZ ([id number]) on 03/03/2017 7:01:13 PM Referred By: ELLIS Confirmed By:BEVERLEY PEREZ
[2017-03-05 15:48] VITALS: BP 156/85
[2017-03-06] VITALS (18 sets, daily range): BP systolic 110–156; BP diastolic 63–96
[~2017-03-06] VITALS: Ht 198.1 cm; Wt 85.7 kg
[~2017-03-06 00:44] MED LIST: CIPR-344 PO; GLIP10TA14 PO; PHEN200T32 PO; TAMS0.4C70 PO
[2017-03-06] MEDS ORDERED: PROPOFOL EMUL(*) 10MG/ML 20 ML 20 ML ONE (07:45)
[2017-03-06] MEDS ORDERED: DEXAMETHASONE SOD 4 MG/ML VIAL ONE (07:45)
[2017-03-06] MEDS ORDERED: METOCLOPRAMIDE 10 MG/2 ML SDV ONE (07:45)
[2017-03-06] MEDS ORDERED: ONDANSETRON 4 MG/2 ML VIAL ONE (07:45)
[2017-03-06] MEDS ORDERED: LIDOCAINE MPF 1% 5 ML VIAL ONE (07:45)
[2017-03-06] MEDS ORDERED: INSULIN HUM REG 100 UN/ML 3 ML VIAL SC ONE ×2 (08:45→10:15)
[2017-03-06] MEDS ORDERED: LIDOCAINE/SOD BICARB 8.4% SYR ID ONE (09:10)
[2017-03-06] MEDS ORDERED: NORMOSOL R SOLN(*) 1000 ML BAG 1,000 ML IV PRN (09:10)
[2017-03-06] MEDS ORDERED: MIDAZOLAM 2 MG/2 ML VIAL IVP PRN (09:10)
[2017-03-06] MEDS ORDERED: FAMOTIDINE 20 MG TAB PO ONE (09:10)
[2017-03-06] MEDS ORDERED: ceFAZolin(*) 2GM/D5W 50ML 50 ML IVPB ONE (09:10)
[2017-03-06] MEDS ORDERED: fentaNYL CITR 100 MCG/2 ML AMP ONE ×4 (09:19→14:29)
--- NOTE | 2017-03-06 09:56 | RADIOLOGY IMAGING REPORT ---
FACILITY: [facility] [place] PATIENT NAME: Iggy Ibarra : 1945 MR: [id number] V: [id number] EXAM DATE: ORDERING PHYSICIAN: IVANIA CORRAL TECHNOLOGIST: Location: [facility] [place] Patient: Iggy Ibarra : 1945 Visit/Account:[id number] Date of Sevice: 03/05/2017 Exam type: KUB SINGLE VIEW ABDOMEN History: Kidney stones, preop ESWL Comparison: CT February 22, 2017. Findings: Nonspecific bowel gas pattern is present. There are multiple ovoid calcination occasions projecting in the right side of the pelvis likely the bladder calculi seen on the recent CT. No definite callus occasions project over the renal shadows. There are moderate spondylotic changes of the lumbar spin e. IMPRESSION: 1. Ovoid calcifications projecting over the right-sided the pelvis likely represent bladder calculi seen on the recent CT Report Dictated By: Gala Quinones MD at 03/06/2017 9:49 AM Report E-Signed By: Gala Quinones MD at 03/06/2017 9:51 AM WSN:[email or web address]
--- NOTE | 2017-03-06 09:58 | RADIOLOGY IMAGING REPORT ---
FACILITY: [facility] [place] PATIENT NAME: Iggy Ibarra : 1945 MR: [id number] V: [id number] EXAM DATE: ORDERING PHYSICIAN: IVANIA CORRAL TECHNOLOGIST: Location: [facility] Patient: Iggy Ibarra : 1945 Visit/Account:[id number] Date of Sevice: 03/06/2017 Exam type: TOMOGRAPHY History: Preop ESWL Comparison: CT February 22, 2017. Findings: No calcifications are identified projecting over the renal shadows. Lobular densities project from t he lower poles of both kidneys likely the cyst seen on the recent CT. IMPRESSION: 1. No calcifications are identified over the renal shadows. Report Dictated By: Gala Quinones MD at 03/06/2017 9:51 AM Report E-Signed By: Gala Quinones MD at 03/06/2017 9:53 AM WSN:[email or web address]
[2017-03-06] MEDS ORDERED: MINERAL OIL LIGHT 10 ML VIAL ONE (10:33)
[2017-03-06] MEDS ORDERED: HYDROCORTISONE 1% CR 28.35 GM TP ONE (10:34)
[2017-03-06] MEDS ORDERED: ROCURONIUM BROM 10 MG/ML 10 ML ONE (10:58)
[2017-03-06] MEDS ORDERED: GENTAMICIN 80 MG/2 ML VIAL ONE (11:21)
[2017-03-06] MEDS ORDERED: IOPAMIDOL-200 50 ML VIAL IS ONE (11:26)
--- NOTE | 2017-03-06 13:41 | RADIOLOGY IMAGING REPORT ---
FACILITY: [facility] [place] PATIENT NAME: Iggy Ibarra : 1945 MR: [id number] V: [id number] EXAM DATE: ORDERING PHYSICIAN: IVANIA CORRAL TECHNOLOGIST: Location: [facility] Patient: Iggy Ibarra : 1945 Visit/Account:[id number] Date of Sevice: 03/06/2017 Exam type: RETROGRADE PYELOGRAM History: BLADDER STONES Comparison: CT February 22, 2017. Findings: Seven intraoperative C-arm spot views of abdomen pelvis were submitted for interpretation. The total fluoroscopy time was seven seconds. The fluoroscopy dose was 5.36 mGray. Contrast is seen in the l eft ureter and incompletely imaged left renal collecting system. There appear to be mild narrowing i n the distal third of the left ureter. Small amount contrast is seen in the distal right ureter that appears partially dilated. IMPRESSION: 1. As above Report Dictated By: Gala Quinones MD at 03/06/2017 1:34 PM Report E-Signed By: Gala Quinones MD at 03/06/2017 1:37 PM WSN:[email or web address]
[2017-03-06] MEDS ORDERED: GLYCOPYRROLATE 0.2 MG/ML SDV ONE (14:24)
[2017-03-06] MEDS ORDERED: BELLADONNA ALK/OPIUM 60MG SUPP PR ONE (14:24)
[2017-03-06] MEDS ORDERED: ONDANSETRON 4 MG/2 ML VIAL IVP PRN (14:40)
[2017-03-06] MEDS ORDERED: ZOLPIDEM TARTRATE 5 MG TAB PO PRN (14:40)
[2017-03-06] MEDS ORDERED: GLYCOPYRROLATE 0.2 MG/ML SDV IVP PRN (14:40)
[2017-03-06] MEDS ORDERED: BELLADONNA ALK/OPIUM 60MG SUPP PR PRN (14:40)
[2017-03-06] MEDS ORDERED: PROPANTHELINE BROMIDE 15MG TAB PO PRN (14:40)
[2017-03-06] MEDS ORDERED: ACETAMIN/CODEINE #3 300-30 MG PO PRN (14:40)
[2017-03-06] MEDS ORDERED: FLUSH 10 ML SYR IVP PRN (14:40)
[2017-03-06 14:44] LABS: PLATELET COUNT, AUTOMATED 390 K/uL (150-450)
[2017-03-06] MEDS ORDERED: NALOXONE HCL 0.4 MG/ML VIAL IVP PRN (14:45)
[2017-03-06] MEDS ORDERED: HYDROmorphone PCA 6 MG/30 ML IV PRN (14:45)
[2017-03-06] MEDS ORDERED: HYDR-389 (16:09)
[2017-03-06] MEDS: WATER FOR IRRIG,STERILE 3000ML 3,000 ML IR PRN (16:11)
[2017-03-06] MEDS: LR(*) 1000 ML BAG 1,000 ML IV PRN (16:23)
--- NOTE | 2017-03-06 17:19 | Hospitalist Consultation ---
History of Present Illness Requesting Physician Dr. Denise Reason for Consult Diabetes mellitus History of Present Illness This patient was admitted for urologic surgery. It is reported that the surgery went well and was without complication. History Problems: (1) Type II diabetes mellitus Status: Chronic Home Meds Reported Medications Acetaminophen/Hydrocodone (HYDROCODON-ACETAMINOPH 7.5-325) 1 Each Ea 03/06/17 Ciprofloxacin Hcl (CIPRO) 500 Mg Tablet, 500 MG PO BID for 15 Days, #30 02/27/17 Discontinued Scripts Phenazopyridine Hcl (PHENAZOPYRIDINE HCL) 200 Mg Tablet, 200 MG PO TID, #30 TAB Prov:BEVERLEY PEREZ DO 02/27/17 Tamsulosin Hcl (TAMSULOSIN HCL) 0.4 Mg Cap.er.24h, 0.4 MG PO BID, #60 CAP Prov:BEVERLEY PEREZ DO 02/27/17 Glipizide (GLIPIZIDE XL) 10 Mg Tab.er.24, 10 MG PO QAM, #30 TAB Prov:BEVERLEY PEREZ DO 02/27/17 Allergies: Coded Allergies: No Known Drug Allergies (Unverified , 02/22/17) Patient History: FH: [place] (myocardial infarction) MOTHER, , Age:Unknown FH: pneumonia FATHER, Hx Smoking: No Smoking Status: Never Smoker Caffeine/Cups Per Day: 0 Hx Alcohol Use: Yes Alcohol Used: Beer Hx Substance Use Disorder: No Review of Systems All Systems Reviewed/Normal: Yes Exam Vital Signs Vital Signs Date Time Temp Pulse Resp B/P (MAP) Pulse Ox O2 Delivery O2 Flow Rate FiO2 03/06/17 16:52 96 Nasal Cannula 2.0 03/06/17 16:52 80 14 03/06/17 15:48 97.7 156/85 (108) Neuro: No Gross deficits Cardiovascular: Regular Rate and Rhythm Respiratory: Clear to Auscultation Extremities: No Edema Integumentary: No Cyanosis Medical Decision Making Data Points Result Diagram: 03/06/17 1436 03/06/17 1436 Assessment and Plan Problems: (1) Type II diabetes mellitus Status: Chronic Assessment & Plan: He was started on glipizide during his last admission, but 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 We will place him on sliding scale level #2 and resume glipizide tomorrow. Central Venous Access Medical Necessity for Access: IV Access, Medication Administration Venous Thromboembolism Antithrombotics Is Pt On Any Antithrombotics?: No BEVERLEY PEREZ DO Mar 06, 2017 17:19
[2017-03-06] MEDS ORDERED: ALBUTEROL 1.25 MG/3ML NEB NEB PRN (18:00)
[2017-03-06] MEDS ORDERED: ALBUTEROL 1.25 MG/3ML NEB NEB SCH (18:00)
[2017-03-06] MEDS: INSULIN HUM LISPRO 100 UN/ML 3 ML VIAL SUBQ PRN ×2 (18:10→20:30)
[2017-03-06] MEDS: cefTRIAXone 1 GM VIAL IVP SCH (18:28)
[2017-03-06] MEDS: BENZALKONIUM CL 1:750 TOP SOLN TP SCH (20:29)
[2017-03-06] MEDS: FAMOTIDINE 20 MG TAB PO SCH (20:29)
[2017-03-06] MEDS: DOCUSATE SODIUM 100 MG CAP PO SCH (20:29)
[2017-03-06] MEDS: NEOMYCIN/POLYMYX/BACITR OINT 1 PACKET TP SCH (20:29)
[2017-03-06] MEDS: GENTAMICIN(*) 80 MG/2 ML VIAL 80 MG in NS(*) 0.9% 100 ML BAG 100 ML IVPB SCH (20:29)
[2017-03-07] VITALS (7 sets, daily range): BP systolic 116–146; BP diastolic 68–89; Ht 198.1 cm; Wt 85.7 kg
[2017-03-07] MEDS: LR(*) 1000 ML BAG 1,000 ML IV PRN ×2 (03:05→16:54)
[2017-03-07] MEDS: GENTAMICIN(*) 80 MG/2 ML VIAL 80 MG in NS(*) 0.9% 100 ML BAG 100 ML IVPB SCH (03:35)
[2017-03-07] MEDS: INSULIN HUM LISPRO 100 UN/ML 3 ML VIAL SUBQ PRN ×4 (08:02→22:58)
[2017-03-07] MEDS: DOCUSATE SODIUM 100 MG CAP PO SCH ×2 (08:56→21:00)
[2017-03-07] MEDS: FAMOTIDINE 20 MG TAB PO SCH ×3 (08:56→20:12)
[2017-03-07] MEDS: NEOMYCIN/POLYMYX/BACITR OINT 1 PACKET TP SCH ×2 (08:56→20:12)
[2017-03-07] MEDS: glipiZIDE XL 5 MG TABCR PO SCH (08:56)
[2017-03-07] MEDS: BENZALKONIUM CL 1:750 TOP SOLN TP SCH ×2 (09:00→21:00)
--- NOTE | 2017-03-07 11:27 | Hospitalist Progress Note ---
Subjective Progress Notes Subjective No cp/sob. No concerns from staff. Physical Exam Vital Signs Date Time Temp Pulse Resp B/P (MAP) Pulse Ox O2 Delivery O2 Flow Rate FiO2 03/07/17 10:23 91 Room Air 03/07/17 08:11 20 03/07/17 07:53 98.3 84 140/73 (95) 1.0 Intake and Output 03/08/17 07:00 Intake Total 480 ml Balance 480 ml Intake Oral 480 ml General Appearance: Alert, Awake, No Acute Distress Result Diagram: 03/06/17 1436 03/06/17 1436 Assessment and Plan Problems: (1) Obstructive uropathy Status: Acute Assessment & Plan: He had a TURP and bladder stone removal on 03/06. Creatine 1.2 on 03/06 and it was 0.9 on 02/26. Will stop gentamicin and continue ceftriaxone. Continue IVF. BMP today and in the morning. (2) Type II diabetes mellitus Status: Chronic Assessment & Plan: He was started on glipizide during his last admission, but did not pick out hand the prescription for this. We will place him on sliding scale level #2 and resumed glipizide on 03/07. Central Venous Access Medical Necessity for Access: IV Access, Medication Administration Exam Sepsis Risk: No Definite Risk JOY CONTRERAS MD Mar 07, 2017 11:27
--- NOTE | 2017-03-07 15:43 | OPERATIVE REPORT 1 ---
EVENT DATE: March 06, 2017 SURGEON: Raj Denise MD ANESTHESIOLOGIST: Iggy Abdullahi MD ANESTHESIA: General anesthesia. PREOPERATIVE DIAGNOSES 1. Urinary retention. 2. 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 3. Vesicolithiasis. 4. Renal insufficiency. POSTOPERATIVE DIAGNOSES 1. Urinary retention. 2. 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 3. Vesicolithiasis. 4. Renal insufficiency. PROCEDURES PERFORMED 1. Cystourethroscopy. 2. Laser lithotripsy of multiple large bladder calculi. Approximately seven to eight were approximately 1 cm to 2 cm in their greater diameters. 3. Vesical litholapaxy of multiple bladder fragments. 4. Transurethral resection of the prostate. 5. Vaporization of the prostate. DESCRIPTION OF PROCEDURE Under general anesthetic, the patient was prepped and draped in the extended lithotomy position. The 21 panendoscope was admitted through the urethra into the bladder. The urethra was normal. The prostate showed trilobar hyperplasia with obstruction and was long and deep. There was evidence of acute and chronic inflammation of the prostatic urethra. Bladder showed 4+ trabeculation with multiple diverticula. The calculi were visualized mostly in the right base in a pocket off the right horn of the trigone. These stones were approximately 1 to 2 cm in their greatest diameter, approximately seven to eight. The smaller calculi were evacuated clear. The laser was used to fragment the stones. The remaining calculi were fragmented more with the crushing stone forceps. The stone particles were removed from the bladder. The prostate was resected. The medean lobe was resected to the verumontanum. The tissue was resected down to the circular fibers at the bladder neck circumferentially. Right lateral lobe tissue was resected. Of note, throughout the procedure after resecting several chips, there was notable bleeding that needed to be controlled with coagulation current with the vapor probe. The coagulation current with the vapor probe was used approximately four to five times throughout the length of the procedure. The right lateral and posterior tissue was resected, and then the left lateral lobe tissue. The posterior tissue was resected with a finger in the rectum. The bleeding appeared to be satisfactorily controlled throughout the procedure. There was no evidence of any venous bleeding. The chips were evacuated from the bladder. The entire prostatic capsule was vaporized at the conclusion of the procedure. The chips were evacuated and some had to be extracted with the grasping forceps to completely clear the bladder of tissue fragments. The tissue was removed satisfactorily. The bleeding still appeared to be satisfactorily controlled. The bladder was filled, and the gravity flow was measured. The scope was removed. There was good efflux of irrigation fluid. It cut off almost immediately upon withdrawal of the scope. The 22-Indonesian three-way Swift was inserted through the urethra over a catheter guide and anchored without any difficulty. Estimated blood loss less than 300 mL. Replacement none. The patient tolerated the procedure satisfactorily and returned to the recovery room in satisfactory condition. This is a 73-year-old white male complaining of urinary retention and outlet obstruction from the prostate gland. The patient was also found to have vesicolithiasis. The patient was found to have acute cystoprostatitis approximately two weeks ago and was treated in the hospital. He has been at home the past week recovering and appears to be recovering satisfactorily with the indwelling Swift. [facility] [place] renal function levels have returned to normal. The patient will be ready for discharge home in the a.m. if all is going well. He is to force fluids, 2 L per day. Activities are restricted to careful ambulation. He is to continue his usual medications. Hospitalist to consult for medical issues, especially diabetes. The patient will be discharged home on Cipro, Pepcid, Pyridium, Motrin, Colace, and Vicodin therapy. MTDD
[2017-03-07] MEDS: cefTRIAXone 1 GM VIAL IVP SCH (17:58)
[2017-03-07] MEDS: WATER FOR IRRIG,STERILE 3000ML 3,000 ML IR PRN (20:13)
[2017-03-08 02:58] VITALS: BP 131/80
[2017-03-08] MEDS: LR(*) 1000 ML BAG 1,000 ML IV PRN (03:04)
[2017-03-08 07:48] VITALS: BP 145/82
[2017-03-08] MEDS: INSULIN HUM LISPRO 100 UN/ML 3 ML VIAL SUBQ PRN ×2 (07:59→12:05)
[2017-03-08] MEDS: glipiZIDE XL 5 MG TABCR PO SCH (08:21)
[2017-03-08] MEDS: BENZALKONIUM CL 1:750 TOP SOLN TP SCH (08:22)
[2017-03-08] MEDS: DOCUSATE SODIUM 100 MG CAP PO SCH (08:22)
[2017-03-08] MEDS: NEOMYCIN/POLYMYX/BACITR OINT 1 PACKET TP SCH (08:22)
[2017-03-08] MEDS: FAMOTIDINE 20 MG TAB PO SCH (08:25)
[2017-03-08] MEDS ORDERED: GLIXL5 PO (09:01)
[2017-03-08] MEDS ORDERED: METF-410 PO (09:01)
[2017-03-08] MEDS ORDERED: metFORMIN HCL 500 MG TAB PO SCH (09:05)
--- NOTE | 2017-03-08 09:05 | Hospitalist Progress Note ---
Subjective Progress Notes Subjective No cp/sob. No concerns from staff or patient. Physical Exam Vital Signs Date Time Temp Pulse Resp B/P (MAP) Pulse Ox O2 Delivery O2 Flow Rate FiO2 03/08/17 07:48 97.8 73 18 145/82 (103) 89 Room Air 03/07/17 07:53 1.0 General Appearance: Alert, Awake, No Acute Distress Result Diagram: 03/06/17 1436 03/08/17 0529 Assessment and Plan Problems: (1) Obstructive uropathy Status: Acute Assessment & Plan: He had a TURP and bladder stone removal on 03/06. Creatine 0.9 today. 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 Glucose elevated in the 200's. He is to go home on glipizide and metformin. Will start the metformin today. Central Venous Access Medical Necessity for Access: IV Access, Medication Administration Exam Sepsis Risk: No Definite Risk JOY CONTRERAS MD Mar 08, 2017 09:05
[2017-03-08 11:22] VITALS: BP 146/85
[2017-03-08] MEDS ORDERED: HYDR-4309 PO (12:45)
[2017-03-08] MEDS ORDERED: PHEN200T32 PO (12:46)
[2017-03-08] MEDS ORDERED: DOCU-416 PO (12:46)
[2017-03-08] MEDS ORDERED: FAMO20TA28 PO (12:46)
== END 2017-03-08 12:39 | disposition home or self-care (01) ==
LOC: OR 00:44 → MED 15:30
DX: R33.9 Retention of urine, unspecified (principal); N40.1 Benign prostatic hyperplasia with lower urinary tract symptoms; N21.0 Calculus in bladder; N28.9 Disorder of kidney and ureter, unspecified; E11.9 Type 2 diabetes mellitus without complications
CPT/HCPCS: 36415; 36416; 52317; 52648; 74018; 74420; 76100; 82365; 82948; 84153; 85025; 88300; 88305; 93005; 94640; 96372; A4338; A9270; C1758; G0378; J0696; J1170; J1580; J1815; J2001; J2250; J2405; J2704; J2765; J3010; J3490; J7120; J7613; Q9966; 82310; 82374; 82435; 82565; 82947; 84132; 84295; 84520; J0690; J1100

== ENCOUNTER → 2017-03-10 | Outpatient (REF) | payer MEDICARE ==
[2017-03-07 08:27] VITALS: BMI 21.8
[~2017-03-10] MED LIST changes: +DOCU-416 PO; +FAMO20TA28 PO; +GLIXL5 PO; +HYDR-389; +HYDR-4309 PO; +METF-410 PO
== END ==
LOC: ZZSENDIN 10:05
DX: N30.01 Acute cystitis with hematuria (principal)
CPT/HCPCS: 81001; 87088